=== PATIENT | male | born 1965 | race Caucasian/White ===

== ENCOUNTER 2016-10-11 18:31 | Emergency (ER) | payer BC ==
[2016-10-11] MEDS ORDERED: Acetaminophen/Codeine 30-300mg Tablet ONE (20:16)
[2016-10-11] MEDS ORDERED: Amoxicillin/Potassium Clav 500 MG TAB ONE (20:18)
[2016-10-11] MEDS ORDERED: Benzonatate 100 MG CAP ONE (20:18)
[2016-10-11] MEDS ORDERED: AMOXicillin 250 MG CAP ONE (20:18)
[2016-10-11] MEDS ORDERED: Naproxen 500 MG TAB ONE (20:18)
--- NOTE | 2016-10-11 20:48 | ERRECORD ---
[facility] EMERGENCY RECORD HPI COUGH (19:12 LLDO) CHIEF COMPLAINT: Patient presents for evaluation of cough, productive of yellow sputum, Denies barking cough, Patient presents for evaluation of low grade fever, head and chest congestion, headache, sore throat, myalgias. sx for 2 days. wasdx'd with flu yesterday. HISTORIAN: History provided by patient, History provided by patient's family. LOCATION: Symptoms are generalized. QUALITY: Denies tightness, Denies wheezing. SEVERITY: Maximum severity of symptoms moderate, Currently symptoms are mild. TIME COURSE: Sudden onset of symptoms, Symptoms are worsening, are constant. ASSOCIATED WITH: Associated with dyspnea on exertion, Associated with fever, Associated with upper respiratory infection, No associated wheezing, No associated weakness. EXACERBATED BY: Patient's condition exacerbated by deep breaths, Patient's condition exacerbated by exercise, Patient's condition exacerbated by lying flat. RELIEVED BY: Patient's condition relieved by rest, Patient's condition relieved by upright position. ROS CONSTITUTIONAL: Historian denies chills, reports fatigue, reports fever, reports malaise, denies night sweats, denies weakness. (19:16 LLDO) EYES: Negative eye review of systems, Historian denies eye pain, denies eye redness, denies eye discharge. (19:25 LLDO) ENT: Historian reports rhinorrhea, reports sore throat. (19:16 LLDO) CARDIOVASCULAR: Historian reports dyspnea on exertion. (19:16 LLDO) RESPIRATORY: Historian reports cough, reports sputum. described as thick, yellow, Historian denies wheezing, yellow. (19:16 LLDO) GI: Historian reports anorexia, reports appetite changes, reports nausea. (19:16 LLDO) MUSCULOSKELETAL: Historian denies back pain, denies deformity, denies fall, denies joint stiffness, denies joint swelling, reports myalgias. (19:16 LLDO) NEUROLOGIC: Historian denies confusion, denies dizziness, denies dysphasia, denies focal weakness, denies gait changes, reports headache, denies irritability, denies lethargy, denies mental status changes. (19:16 LLDO) HEMO/LYMPHATIC: Normal hematologic/lymphatic system review, Historian denies abnormal blood clotting, denies gum bleeding, denies petechiae. (19:25 LLDO) ALLERGIC/IMMUNOLOGIC: Normal allergy/immunologic system review, Historian denies eczema, denies environmental allergies, denies food allergies. (19:25 LLDO) &a-1R&a+25V*p+0X*[id number]*c202B*c15G*c2P*p-0X&a-25V&a+1R Name: Rodrick Bueno : 1965 M51 MedRec: [id number] AcctNum: [id number] Prepared: Angelika Oct 11, 2016 20:53 by Interface Page 1 of 4 pMD [facility] EMERGENCY RECORD PSYCHIATRIC: Negative psychiatric review of systems, Historian denies alcohol abuse, denies anxiety, denies depression, denies drug abuse, denies hallucinations. (19:25 LLDO) NOTES: All systems reviewed, negative except as described above. (19:16 LLDO) PAST MEDICAL HISTORY MEDICAL HISTORY: No past medical history. REVIEWED ON 10/11/16. (18:39 WILLIE) MALE SURGICAL HISTORY: Patient has no surgical history. REVIEWED ON 10/11/16. (18:39 WILLIE) PSYCHIATRIC HISTORY: No previous psychiatric history. REVIEWED ON 10/11/16. (18:39 WILLIE) SOCIAL HISTORY: Patient drinks socially, rarely, Patient denies drug use, Patient is a former tobacco user, smoked cigarettes, Patient quit smoking less than 10 years ago, Lives at home, with family. Pt smoked for about 10 years. REVIEWED ON 10/11/16. (18:39 WILLIE) FAMILY HISTORY: Paternal history of cardiac disease:, Treated with a pacemaker. (18:39 WILLIE) NOTES: Nursing records reviewed, Agree with nursing records, Medication list reviewed. (19:25 LLDO) KNOWN ALLERGIES No Known Drug Allergies CURRENT MEDICATIONS (18:38 WILLIE) None VITAL SIGNS VITAL SIGNS: BP: 135/86, Pulse: 101, Resp: 18, Temp: 98.3 (Oral), Pain: 3, O2 sat: 97 on Room Air, Time: 10/11/2016 18:36. (18:36 WILLIE) BP: 122/88, Time: 10/11/2016 20:29. (20:29 WILLIE) PHYSICAL EXAM CONSTITUTIONAL: Vital Signs Reviewed, Patient afebrile, Pulse, tachycardic, 101, Blood pressure normal, Respiratory rate normal, Normal pulse oximetry, Patient appears, uncomfortable, Patient appears, in mild pain distress, Patient alert and oriented to person, place and time, Nursing notes reviewed. (19:18 LLDO) HEAD: Head exam normal, Head exam included findings of head atraumatic, normocephalic. (19:25 LLDO) EYES: Eye exam normal, Eye exam included findings of eyelids normal to inspection, Pupils equally round and reactive to light, Extraocular muscles intact. (19:25 LLDO) ENT: Ear exam normal, Nose exam normal, Pharynx, injected bilaterally, with swelling bilaterally, symmetrical, Uvula exam normal, Sinus exam included findings of frontal sinuses normal, maxillary sinuses normal. (19:18 LLDO) &a-1R&a+25V*p+0X*o4145A*c202B*c15G*c2P*p-0X&a-25V&a+1R Name: Rodrick Bueno : 1965 M51 MedRec: [id number] AcctNum: [id number] Prepared: Angelika Oct 11, 2016 20:53 by Interface Page 2 of 4 pMD [facility] EMERGENCY RECORD NECK: Neck exam normal, Neck exam included findings of normal range of motion, Trachea midline, no meningeal signs, no tenderness. (19:25 LLDO) RESPIRATORY CHEST: Respiratory exam included findings of no respiratory distress, No wheezing, Rales present, No rhonchi, Chest exam included findings of chest movement symmetrical, Chest expansion equal, RALES MOD AND SCATTERED. (19:18 LLDO) CARDIOVASCULAR: Cardiovascular assessment normal, Cardiovascular exam included findings of heart rate regular rate and rhythm, Heart sounds normal. (19:25 LLDO) ABDOMEN MALE: Abdominal exam normal, Abdominal exam included findings of abdomen nontender, Bowel sounds normal, no peritoneal signs. (19:25 LLDO) BACK: Back exam normal, Back exam included findings of normal inspection, range of motion normal. (19:25 LLDO) UPPER EXTREMITY: Upper extremity exam normal, Upper extremity exam included findings of inspection normal, Range of motion normal. (19:25 LLDO) LOWER EXTREMITY: Lower extremity exam normal, Lower extremity exam included findings of inspection normal, Range of motion normal. (19:25 LLDO) NEURO: Neuro exam normal, Neuro exam findings include patient oriented to person, place and time, Speech normal, Vanderwagen coma scale 15. (19:25 LLDO) SKIN: Skin exam normal, Skin exam included findings of skin warm, dry, and normal in color, no rash. (19:25 LLDO) PSYCHIATRIC: Psychiatric exam normal, Psychiatric exam included findings of patient oriented to person place and time, Normal affect, Judgment normal. (19:25 LLDO) MEDICATION ADMINISTRATION SUMMARY Drug Name: amoxicillin, Dose Ordered: 500 mg, Route: Oral, Status: Given, Time: 20:28 10/11/2016, Drug Name: Tessalon Perles, Dose Ordered: 200 mg, Route: Oral, Status: Given, Time: 20:25 10/11/2016, Drug Name: Naprosyn, Dose Ordered: 500 mg, Route: Oral, Status: Given, Time: 20:21 10/11/2016, Drug Name: *acetaminophen-codeine, Dose Ordered: 2 tab(s), Route: Oral, Status: Given, Time: 20:20 10/11/2016, *Additional information available in notes, Detailed record available in Medication Service section. PROBLEM LIST No recorded problems DIAGNOSIS (20:06 LLDO) FINAL: PRIMARY: Acute bronchitis. PRESCRIPTION (20:07 LLDO) &a-1R&a+25V*p+0X*q8343B*c202B*c15G*c2P*p-0X&a-25V&a+1R Name: Rodrick Bueno : 1965 M51 MedRec: [id number] AcctNum: [id number] Prepared: Angelika Oct 11, 2016 20:53 by Interface Page 3 of 4 pMD [facility] EMERGENCY RECORD amoxicillin: CAPSULE (HARD, SOFT, ETC.) : 500 mg : ORAL : Quantity: 1 Unit: cap(s) Route: ORAL Schedule: 3 times a day Dispense: 30 May substitute. Refills: No Refills . NOTES: No Refills. Phenergan DM: SYRUP : : ORAL : Quantity: 1-2 Unit: teaspoon Route: ORAL Schedule: every 4 hours prn Dispense: 180 Unit: mL May substitute. Refills: No Refills . NOTES: ^s=No Refills No Refills. Tylenol-Codeine #3: TABLET : 300 mg-30 mg : ORAL : Quantity: 1 Unit: tab(s) Route: ORAL Schedule: every 4 hours prn Dispense: 20 Unit: tab(s) May substitute. Refills: No Refills . NOTES: ^s=^s=No Refills No Refills No Refills. DISPOSITION PATIENT: Disposition Type: Discharge, Disposition: *Discharge Home. (20:06 FINA) Patient left the department. (20:33 WILLIE) Dao: WILLIE=TONIA Maki, Socorro LL=MD Louis, Paulo &a-1R&a+25V*p+0X*v7941H*c202B*c15G*c2P*p-0X&a-25V&a+1R Name: Rodrick Bueno : 1965 M51 MedRec: [id number] AcctNum: [id number] Prepared: Angelika Oct 11, 2016 20:53 by Interface Page 4 of 4 pMD MTDD
--- NOTE | 2016-10-11 20:52 | PICIS ---
[facility] EMERGENCY RECORD TRIAGE (WedOct 11, 2016 18:37 WILLIE) TRIAGE NOTES: PATIENT C/O "FEELING BAD" FOR 2 DAYS. SORE THROAT. DECREASED APPETITIE. (WedOct 11, 2016 18:37 WILLIE) PATIENT: KG WEIGHT: 104.8 (est.). (18:39 WILLIE) NAME: Rodrick Bueno, AGE: 51, GENDER: male, : Wed1965, TIME OF GREET: WedOct 11, 2016 18:31, PREFERRED LANGUAGE: Togolese, ETHNICITY: Not or , ECODE BILLING MAP: [facility], SSN: [id number], Zip Code: [address], , , PERSON ID: [id number], PCP: Family Medicine, [place]mo A and . (WedOct 11, 2016 18:37 WILLIE) PHONE: . (19:31) COMPLAINT: SORE THROAT. ([place] Oct 11, 2016 18:37 WILLIE) ADMISSION: URGENCY: 4 Non Urgent, ADMISSION SOURCE: Home, TRANSPORT: Walk-in, BED: TRIAGE. ([place] Oct 11, 2016 18:37 WILLIE) ASSESSMENT: Additional Triage notes: PATIENT STATES HIS ALLERGIES STARTED BOTHERING HIM TWO DAYS AGO AND NOW HE HAS A SORE THROAT AND DECREASED APPETITE. (18:39 WILLIE) PAIN: Patient complains of pain described as, tender, Location THROAT. (18:39 WILLIE) IMMUNIZATIONS: Flu vaccine not up to date, Tetanus not up to date, Pneumococcal vaccine not up to date. (18:39 WILLIE) SIRS SCORING: Heart Rate 55-109 (0), Temp range 96.8-101.1 (0), respiratory rate 12-24 (0), Latest WBC 3-14.9 (0), Mental Status altered: no (0), Infection or Suspected Infection: No. (18:39 WILLIE) TRIAGE SCREENING: Patient denies suicidal ideation, Patient denies presence of domestic violence. (18:39 WILLIE) PROVIDERS: TRIAGE NURSE: Socorro Maki RN. ([place] Oct 11, 2016 18:37 WILLIE) VITAL SIGNS: BP 135/86, Pulse 101, Resp 18, Temp 98.3, (Oral), Pain 3, O2 Sat 97, on Room Air, Time 10/11/2016 18:36. (18:36 WILLIE) PREVIOUS VISIT ALLERGIES: No Known Drug Allergies. (Angelika Oct 11, 2016 18:37 WILLIE) No Known Drug Allergies. (18:39 WILLIE) KNOWN ALLERGIES No Known Drug Allergies CURRENT MEDICATIONS (18:38 WILLIE) None VITAL SIGNS VITAL SIGNS: BP: 135/86, Pulse: 101, Resp: 18, Temp: 98.3 (Oral), Pain: 3, O2 sat: 97 on Room Air, Time: 10/11/2016 18:36. (18:36 WILLIE) BP: 122/88, Time: 10/11/2016 20:29. (20:29 WILLIE) NURSING ASSESSMENT: ENT (19:16 WILLIE) CONSTITUTIONAL: Patient arrives ambulatory, Gait steady, History obtained from patient, Patient appears comfortable, Patient &a-1R&a+25V*p+0X*m4678R*c202B*c15G*c2P*p-0X&a-25V&a+1R Name: Rodrick Bueno : 1965 M51 MedRec: [id number] AcctNum: [id number] Prepared: Angelika Oct 11, 2016 21:00 by Interface Page 1 of 8 pMD [facility] EMERGENCY RECORD cooperative, Patient alert, Oriented to person, place and time, Skin warm, Skin dry, Skin normal in color, Mucous membranes pink, Mucous membranes moist, Patient is well-groomed, PATIENT C/O ALLERGIES THAT STARTED BOTHERING HIM TWO DAYS AGO. C/O SORE THROAT NOW. RECENTLY DX WITH THE FLU. PAIN: tender pain, to the throat. ENT: Ear assessment findings include ear normal to inspection, Nasal assessment findings include nose normal to inspection, Sinuses normal, Nasal mucosa normal, Discharge, from bilateral nare, Congestion, bilaterally, Mouth and throat assessment findings include mouth inspection normal, Uvula normal, Tonsils normal, Mucous membranes pink, and moist, Able to swallow, Speech normal. RESPIRATORY/CHEST: Breath sounds clear, Respiratory assessment findings include respiratory effort easy, Respirations regular, Conversing normally, Neck and chest exam findings include trachea midline, Chest expansion equal, Chest movement symmetrical. SAFETY: Side rails up, Cart/Stretcher in lowest position, Family at bedside, Call light within reach, Hospital ID band on. NURSING PROCEDURE: DISCHARGE NOTE (20:29 WILLIE) DISCHARGE: Patient discharged to home, ambulating without assistance, family driving, accompanied by other family member, Discharge instructions given to patient, Prescriptions given and instructions on side effects given, Above person(s) verbalized understanding of discharge instructions and follow-up care, Patient instructed not to drive home. BELONGINGS: Belongings and valuables with patient upon arrival to the Emergency Department include:, Belongings and valuables with patient at time of discharge include:, Belongings remain with patient, Valuables remain with patient. SAFETY: Side rails up, Cart/Stretcher in lowest position, Family at bedside, Call light within reach, Hospital ID band on. VITAL SIGNS: BP: 122, / 88. NURSING PROCEDURE: ENT (19:15 WILLIE) PATIENT IDENTIFIER: Patient actively involved in identification process, Patient's identity verified by patient stating name, Patient's identity verified by patient stating date, Patient's identity verified by hospital ID bracelet. ENT: Nasal swab collected, labeled in the presence of the patient and sent to lab for testing of, influenza A, influenza B, collected by [email or web address], Throat swab collected, labeled in the presence of the patient and sent to the lab for testing of, rapid strep, collected by [email or web address]. SAFETY: Side rails up, Cart/Stretcher in lowest position, Family at bedside, Call light within reach, Hospital ID band on. NURSING PROCEDURE: NURSE NOTES (19:50 WILLIE) NURSES NOTES: Notes: Patient sitting in the room resting. &a-1R&a+25V*p+0X*d5350B*c202B*c15G*c2P*p-0X&a-25V&a+1R Name: Rodrick Bueno : 1965 M51 MedRec: [id number] AcctNum: [id number] Prepared: Angelika Oct 11, 2016 21:00 by Interface Page 2 of 8 pMD [facility] EMERGENCY RECORD Family at bedside. No acute distress. No needs at this time. ORDER DETAILS Order Name: Influenza A&B Ag Screen, Status: Active, Time: 19:09 10/11/2016, User: FINA, - Ordered for: MD Myers Lloyd, - Entered by: MD Myers Lloyd - Angelika Oct 11, 2016 19:09, - Quantity: 1, Order Name: Strep Group A Screen, Status: Active, Time: 19:09 10/11/2016, User: FINA, - Ordered for: MD Myers Lloyd, - Entered by: MD Myers Lloyd - Angelika Oct 11, 2016 19:09, - Quantity: 1. MEDICATION ADMINISTRATION SUMMARY Drug Name: amoxicillin, Dose Ordered: 500 mg, Route: Oral, Status: Given, Time: 20:28 10/11/2016, Drug Name: Tessalon Perles, Dose Ordered: 200 mg, Route: Oral, Status: Given, Time: 20:25 10/11/2016, Drug Name: Naprosyn, Dose Ordered: 500 mg, Route: Oral, Status: Given, Time: 20:21 10/11/2016, Drug Name: *acetaminophen-codeine, Dose Ordered: 2 tab(s), Route: Oral, Status: Given, Time: 20:20 10/11/2016, *Additional information available in notes, Detailed record available in Medication Service section. MEDICATION SERVICE acetaminophen-codeine: Order: acetaminophen-codeine (acetaminophen/codeine phosphate) - Dose: 2 tab(s) : Oral Schedule: Now Notes: each tab 30-300 Ordered by: Paulo Myers MD Entered by: MD Angelika Koenig Oct 11, 2016 20:05 , Acknowledged by: TONIA Banks Oct 11, 2016 20:14 Documented as given by: TONIA Banks Oct 11, 2016 20:20 Patient, Medication, Dose, Route and Time verified prior to administration. Site: Medication administered P.O., Correct patient, time, route, dose and medication confirmed prior to administration, Patient advised of actions and side-effects prior to administration, Allergies confirmed and medications reviewed prior to administration, Patient in position of comfort, Side rails up, Cart in lowest position, Family at bedside. amoxicillin: Order: amoxicillin (amoxicillin trihydrate) - Dose: 500 mg : Oral Schedule: Now Ordered by: Paulo Myers MD Entered by: MD Angelika Koenig Oct 11, 2016 20:04 , &a-1R&a+25V*p+0X*p1726T*c202B*c15G*c2P*p-0X&a-25V&a+1R Name: Rodrick Bueno : 1965 M51 MedRec: [id number] AcctNum: [id number] Prepared: Angelika Oct 11, 2016 21:00 by Interface Page 3 of 8 pMD [facility] EMERGENCY RECORD Acknowledged by: TONIA Banks Oct 11, 2016 20:14, Co-signed by: TONIA Banks Oct 11, 2016 20:27 Documented as given by: TONIA Banks Oct 11, 2016 20:28 Patient, Medication, Dose, Route and Time verified prior to administration. Site: Medication administered P.O., Correct patient, time, route, dose and medication confirmed prior to administration, Patient advised of actions and side-effects prior to administration, Allergies confirmed and medications reviewed prior to administration, Patient in position of comfort, Side rails up, Cart in lowest position, Family at bedside. Naprosyn: Order: Naprosyn (naproxen) - Dose: 500 mg : Oral Schedule: Now Ordered by: Paulo Myers MD Entered by: MD Angelika Koenig Oct 11, 2016 20:05 , Acknowledged by: TONIA Banks Oct 11, 2016 20:14 Documented as given by: TONIA Banks Oct 11, 2016 20:21 Patient, Medication, Dose, Route and Time verified prior to administration. Site: Medication administered P.O., Correct patient, time, route, dose and medication confirmed prior to administration, Patient advised of actions and side-effects prior to administration, Allergies confirmed and medications reviewed prior to administration, Patient in position of comfort, Side rails up, Cart in lowest position, Family at bedside. Tessalon Perles: Order: Tessalon Perles (benzonatate) - Dose: 200 mg : Oral Schedule: Now Ordered by: Paulo Myers MD Entered by: MD Angelika Koenig Oct 11, 2016 20:04 , Acknowledged by: TONIA Banks Oct 11, 2016 20:15 Documented as given by: TONIA Banks Oct 11, 2016 20:25 Patient, Medication, Dose, Route and Time verified prior to administration. Site: Medication administered P.O., Correct patient, time, route, dose and medication confirmed prior to administration, Patient advised of actions and side-effects prior to administration, Allergies confirmed and medications reviewed prior to administration, Patient in position of comfort, Side rails up, Cart in lowest position, Family at bedside. HPI COUGH (19:12 LLDO) CHIEF COMPLAINT: Patient presents for evaluation of cough, productive of yellow sputum, Denies barking cough, Patient presents for evaluation of low grade fever, head and chest congestion, headache, sore throat, myalgias. sx for 2 days. wasdx'd with flu yesterday. HISTORIAN: History provided by patient, History provided by patient's family. LOCATION: Symptoms are generalized. QUALITY: &a-1R&a+25V*p+0X*j6849R*c202B*c15G*c2P*p-0X&a-25V&a+1R Name: Rodrick Bueno : 1965 M51 MedRec: [id number] AcctNum: [id number] Prepared: Angelika Oct 11, 2016 21:00 by Interface Page 4 of 8 pMD [facility] EMERGENCY RECORD Denies tightness, Denies wheezing. SEVERITY: Maximum severity of symptoms moderate, Currently symptoms are mild. TIME COURSE: Sudden onset of symptoms, Symptoms are worsening, are constant. ASSOCIATED WITH: Associated with dyspnea on exertion, Associated with fever, Associated with upper respiratory infection, No associated wheezing, No associated weakness. EXACERBATED BY: Patient's condition exacerbated by deep breaths, Patient's condition exacerbated by exercise, Patient's condition exacerbated by lying flat. RELIEVED BY: Patient's condition relieved by rest, Patient's condition relieved by upright position. ROS CONSTITUTIONAL: Historian denies chills, reports fatigue, reports fever, reports malaise, denies night sweats, denies weakness. (19:16 LLDO) EYES: Negative eye review of systems, Historian denies eye pain, denies eye redness, denies eye discharge. (19:25 LLDO) ENT: Historian reports rhinorrhea, reports sore throat. (19:16 LLDO) CARDIOVASCULAR: Historian reports dyspnea on exertion. (19:16 LLDO) RESPIRATORY: Historian reports cough, reports sputum. described as thick, yellow, Historian denies wheezing, yellow. (19:16 LLDO) GI: Historian reports anorexia, reports appetite changes, reports nausea. (19:16 LLDO) MUSCULOSKELETAL: Historian denies back pain, denies deformity, denies fall, denies joint stiffness, denies joint swelling, reports myalgias. (19:16 LLDO) NEUROLOGIC: Historian denies confusion, denies dizziness, denies dysphasia, denies focal weakness, denies gait changes, reports headache, denies irritability, denies lethargy, denies mental status changes. (19:16 LLDO) HEMO/LYMPHATIC: Normal hematologic/lymphatic system review, Historian denies abnormal blood clotting, denies gum bleeding, denies petechiae. (19:25 LLDO) ALLERGIC/IMMUNOLOGIC: Normal allergy/immunologic system review, Historian denies eczema, denies environmental allergies, denies food allergies. (19:25 LLDO) PSYCHIATRIC: Negative psychiatric review of systems, Historian denies alcohol abuse, denies anxiety, denies depression, denies drug abuse, denies hallucinations. (19:25 LLDO) NOTES: All systems reviewed, negative except as described above. (19:16 LLDO) PAST MEDICAL HISTORY MEDICAL HISTORY: No past medical history. REVIEWED ON &a-1R&a+25V*p+0X*t5422S*c202B*c15G*c2P*p-0X&a-25V&a+1R Name: Rodrick Bueno : 1965 M51 MedRec: [id number] AcctNum: [id number] Prepared: Angelika Oct 11, 2016 21:00 by Interface Page 5 of 8 pMD [facility] EMERGENCY RECORD 10/11/16. (18:39 WILLIE) MALE SURGICAL HISTORY: Patient has no surgical history. REVIEWED ON 10/11/16. (18:39 WILLIE) PSYCHIATRIC HISTORY: No previous psychiatric history. REVIEWED ON 10/11/16. (18:39 WILLIE) SOCIAL HISTORY: Patient drinks socially, rarely, Patient denies drug use, Patient is a former tobacco user, smoked cigarettes, Patient quit smoking less than 10 years ago, Lives at home, with family. Pt smoked for about 10 years. REVIEWED ON 10/11/16. (18:39 WILLIE) FAMILY HISTORY: Paternal history of cardiac disease:, Treated with a pacemaker. (18:39 WILLIE) NOTES: Nursing records reviewed, Agree with nursing records, Medication list reviewed. (19:25 LLDO) PHYSICAL EXAM CONSTITUTIONAL: Vital Signs Reviewed, Patient afebrile, Pulse, tachycardic, 101, Blood pressure normal, Respiratory rate normal, Normal pulse oximetry, Patient appears, uncomfortable, Patient appears, in mild pain distress, Patient alert and oriented to person, place and time, Nursing notes reviewed. (19:18 LLDO) HEAD: Head exam normal, Head exam included findings of head atraumatic, normocephalic. (19:25 LLDO) EYES: Eye exam normal, Eye exam included findings of eyelids normal to inspection, Pupils equally round and reactive to light, Extraocular muscles intact. (19:25 LLDO) ENT: Ear exam normal, Nose exam normal, Pharynx, injected bilaterally, with swelling bilaterally, symmetrical, Uvula exam normal, Sinus exam included findings of frontal sinuses normal, maxillary sinuses normal. (19:18 LLDO) NECK: Neck exam normal, Neck exam included findings of normal range of motion, Trachea midline, no meningeal signs, no tenderness. (19:25 LLDO) RESPIRATORY CHEST: Respiratory exam included findings of no respiratory distress, No wheezing, Rales present, No rhonchi, Chest exam included findings of chest movement symmetrical, Chest expansion equal, RALES MOD AND SCATTERED. (19:18 LLDO) CARDIOVASCULAR: Cardiovascular assessment normal, Cardiovascular exam included findings of heart rate regular rate and rhythm, Heart sounds normal. (19:25 LLDO) ABDOMEN MALE: Abdominal exam normal, Abdominal exam included findings of abdomen nontender, Bowel sounds normal, no peritoneal signs. (19:25 LLDO) BACK: Back exam normal, Back exam included findings of normal inspection, range of motion normal. (19:25 LLDO) UPPER EXTREMITY: Upper extremity exam normal, Upper extremity exam included findings of inspection normal, Range of motion normal. (19:25 LLDO) LOWER EXTREMITY: Lower extremity exam normal, Lower extremity &a-1R&a+25V*p+0X*n3585D*c202B*c15G*c2P*p-0X&a-25V&a+1R Name: Rodrick Bueno Sandi : 1965 M51 MedRec: [id number] AcctNum: [id number] Prepared: Angelika Oct 11, 2016 21:00 by Interface Page 6 of 8 pMD [facility] EMERGENCY RECORD exam included findings of inspection normal, Range of motion normal. (19:25 LLDO) NEURO: Neuro exam normal, Neuro exam findings include patient oriented to person, place and time, Speech normal, Cartwright coma scale 15. (19:25 LLDO) SKIN: Skin exam normal, Skin exam included findings of skin warm, dry, and normal in color, no rash. (19:25 LLDO) PSYCHIATRIC: Psychiatric exam normal, Psychiatric exam included findings of patient oriented to person place and time, Normal affect, Judgment normal. (19:25 LLDO) EVENTS TRANSFER: Triage to Emergency Triage. (18:37 WILLIE) Emergency Triage to Main ED -03. (18:38 WILLIE) Emergency Main ED -03 to -H01. (18:40 CJEF) Emergency Main ED -03 to -04. (18:40 WILLIE) Removed from Emergency Main ED -04. (20:33 WILLIE) PROBLEM LIST No recorded problems DIAGNOSIS (20:06 LLDO) FINAL: PRIMARY: Acute bronchitis. DISPOSITION PATIENT: Disposition Type: Discharge, Disposition: *Discharge Home. (20:06 LLDO) Patient left the department. (20:33 WILLIE) INSTRUCTION (20:08 LLDO) DISCHARGE: BRONCHITIS, ABX [place] (ADULT). FOLLOWUP: Noelle LORENZO HARSH, Internal Medicine, [address] [place] [address] [address] Edis [address]ODES, [place] [address], [phone], Follow up with Primary Care Physician in 7-10 days. SPECIAL: Follow-up with your PCP. PRESCRIPTION (20:07 LLDO) amoxicillin: CAPSULE (HARD, SOFT, ETC.) : 500 mg : ORAL : Quantity: 1 Unit: cap(s) Route: ORAL Schedule: 3 times a day Dispense: 30 May substitute. Refills: No Refills . NOTES: No Refills. Phenergan DM: SYRUP : : ORAL : Quantity: 1-2 Unit: teaspoon Route: ORAL Schedule: every 4 hours prn Dispense: 180 Unit: mL May substitute. Refills: No Refills . NOTES: ^s=No Refills No Refills. Tylenol-Codeine #3: TABLET : 300 mg-30 mg : ORAL : Quantity: 1 Unit: tab(s) Route: ORAL Schedule: every 4 hours prn Dispense: &a-1R&a+25V*p+0X*x8980Q*c202B*c15G*c2P*p-0X&a-25V&a+1R Name: Rodrick Bueno : 1965 11 MedRec: [id number] AcctNum: [id number] Prepared: WedOct 11, 2016 21:00 by Interface Page 7 of 8 pMD [facility] EMERGENCY RECORD 20 Unit: tab(s) May substitute. Refills: No Refills . NOTES: ^s=^s=No Refills No Refills No Refills. IMAGING *DISCHARGE INSTRUCTIONS RECEIPT: Image captured from scanner. (20:30 WILLIE) Page 2 added. Image captured from scanner. (20:30 WILLIE) *SUPPLY CHARGE SHEET: Image captured from scanner. (20:31 WILLIE) ADMIN (20:45 LLDO) DIGITAL SIGNATURE: MD Louis, Paulo. MD Louis, Paulo. Dao: WILLIE=TONIA Maki Cassie CJEF=TONIA Donohue Cassie LLDO=MD Myers Lloyd &a-1R&a+25V*p+0X*i0679C*c202B*c15G*c2P*p-0X&a-25V&a+1R Name: Rodrick Bueno : 1965 11 MedRec: [id number] AcctNum: [id number] Prepared: WedOct 11, 2016 21:00 by Interface Page 8 of 8 pMD [facility] MEDICATION RECONCILIATION You were seen in the Emergency Department on: WedOct 11, 2016 KNOWN ALLERGIES No Known Drug Allergies MEDICATIONS GIVEN WHILE IN THE EMERGENCY DEPARTMENT amoxicillin (amoxicillin trihydrate) - Dose: 500 milligram(s) : Oral Tessalon Perles (benzonatate) - Dose: 200 milligram(s) : Oral Naprosyn (naproxen) - Dose: 500 milligram(s) : Oral acetaminophen-codeine (acetaminophen/codeine phosphate) - Dose: 2 tab(s) : Oral HOME MEDICATIONS None Notes from the emergency department Reviewed with family Reviewed with patient PRESCRIPTIONS (3) Printed (3) amoxicillin : CAPSULE (HARD, SOFT, ETC.) : 500 mg : ORAL Quantity: 1, Unit: cap(s), Route: ORAL, Schedule: 3 times a day, Dispense: 30 Phenergan DM : SYRUP : : ORAL Quantity: 1-2, Unit: teaspoon, Route: ORAL, Schedule: every 4 hours prn, Dispense: 180 Unit: milliliter(s) &a-1R&a+25V*p+0X*p5924F*c202B*c15G*c2P*p-0X&a-25V&a+1R Name: Rodrick Bueno : 1965 M51 MedRec: [id number] AcctNum: [id number] Prepared: Angelika Oct 11, 2016 21:00 by Interface pMD MTDD
== END 2016-10-11 20:29 | disposition home or self-care (01) ==
LOC: MADERS 18:31
DX: J20.9 Acute bronchitis, unspecified (principal); Z87.891 Personal history of nicotine dependence
CPT/HCPCS: 87430; 99283

== ENCOUNTER 2020-11-01 20:12 | Emergency (ER) | payer BC, SELFPAY ==
[2020-11-01] MEDS ORDERED: Acetaminophen 500 MG TAB ONE (20:35)
--- NOTE | 2020-11-01 20:49 | RAD ---
EXAM: CHEST ONE VIEW PORTABLE: 11/01/20 HISTORY: Chest pain. COMPARISON: 10/11/14. FINDINGS: Moderate right hemidiaphragm elevation. Heart size is normal. The lungs are clear. IMPRESSION: No significant acute intrathoracic disease. Moderate right hemidiaphragm elevation. POS: RRE
[2020-11-01] MEDS ORDERED: Aspirin Chewable 81 MG TAB ONE (20:56)
[2020-11-01] MEDS ORDERED: Sodium Chloride 0.9% 100 ML ONE (21:23)
[2020-11-01] MEDS ORDERED: Sodium Chloride 0.9% 1,000 ML ONE (21:23)
[2020-11-01] MEDS ORDERED: Ibuprofen 200 MG TAB ONE (21:23)
[2020-11-01] MEDS ORDERED: cefTRIAXone\\ROCEPHIN 2 GM VIAL ONE (21:23)
[2020-11-01] MEDS ORDERED: Azithromycin 250 MG TAB ONE (21:23)
== END 2020-11-01 23:50 | disposition home or self-care (01) ==
LOC: MADERS 20:12
DX: U07.1 COVID-19 (principal); J20.9 Acute bronchitis, unspecified; Z87.891 Personal history of nicotine dependence
CPT/HCPCS: 71045; 80053; 81003; 81015; 82550; 82553; 83605; 84484; 85025; 85379; 87040; 87086; 87635; 87804; 93005; 94760; 96365; J0696; J3490; J7050; U0003; U0005